=== PATIENT | female | born 1980 | race Caucasian/White ===

== ENCOUNTER 2023-09-22 14:53 | Emergency (ER) | payer OTHER ==
[~2023-09-22] VITALS: Ht 167.6 cm; Wt 70.0 kg
[2023-09-22 15:02] VITALS: O2SAT 99
[2023-09-22] MEDS: LACTATED RINGERS 1,000 ML IV SCH ×2 (15:47→18:15)
[2023-09-22 16:19] LABS: BASOPHILS % 0.3 % (0.0-2.0); CHLORIDE 106 mEq/L (98-107); EOSINOPHILS % 0.1 % (0.0-5.0); HEMATOCRIT. 30.9 % (36.0-48.0); HEMOGLOBIN. 9.7 g/dL (12.0-16.0); LYMPHOCYTES % 12.1 % (20.0-50.0); MEAN CORPUSCULAR HEMOGLOBIN 26.5 pg (28.0-32.0); MEAN CORPUSCULAR HGB CONC 31.3 g/dL (31.0-37.0); MEAN CORPUSCULAR VOLUME 84.6 fL (81.0-99.0); MEAN PLATELET VOLUME 7.4 fl (7.4-10.4); MONOCYTES % 1.8 % (2.0-8.0); NEUTROPHILS % 85.7 % (40.0-76.0); PLATELET 683 x1000/uL (130-400); RED BLOOD CELL COUNT 3.66 mill/uL (4.2-5.4); RED CELL DISTRIBUTION WIDTH 20.5 % (11.6-14.6); SODIUM 134 mEq/L (136-145)
[2023-09-22 16:20] LABS: CARBON DIOXIDE 26 mEq/L (21-32)
[2023-09-22 16:21] LABS: CALCIUM 8.8 mg/dL (8.7-10.4)
[2023-09-22 16:25] LABS: CREATININE 0.8 mg/dL (0.6-1.0); GLUCOSE 108 mg/dL (70-105)
[2023-09-22 16:26] LABS: UREA NITROGEN BLOOD 15 mg/dL (9-23)
[2023-09-22 16:27] LABS: ACETAMINOPHEN < 2 ug/mL (10-30); ALANINE AMINOTRANSFERASE 31 IU/L (10-49); ALBUMIN 3.5 g/dL (3.2-4.8); ASPARTATE AMINOTRANSFERASE 21 IU/L (<34)
[2023-09-22 16:28] LABS: BILIRUBIN TOTAL 0.2 mg/dL (0.1-1.0); PROTEIN TOTAL 6.1 g/dL (6.0-8.3)
[2023-09-22 16:38] LABS: ETHANOL BLOOD < 10 mg/dL (<10)
[2023-09-22 16:42] LABS: HCG SCREEN NEGATIVE
[2023-09-22 20:30] VITALS: BP 112/59; PULSE 66; RESP 18; TEMP 98.2
== END 2023-09-22 20:50 | disposition home or self-care (01) ==
LOC: ER 15:25
DX: R55 Syncope and collapse (principal); F19.90 Other psychoactive substance use, unspecified, uncomplicated
CPT/HCPCS: 80053; 80307; 80329; 80320; 84703; 85025; 36415; 70450; 93005; 96360; 96361; 99291; Z7610; G0480